=== PATIENT | male | born 1980 ===

== ENCOUNTER 2016-06-13 15:17 | Emergency (ER) | payer MEDICAID, OTHER ==
[2016-06-13 15:17] VITALS: BMI 22.3
[2016-06-13 15:28] VITALS: RESP 18; TEMP 98.2; O2SAT 100
[2016-06-13 17:09] VITALS: BP 116/78; PULSE 69
--- NOTE | 2016-06-13 17:52 | ED PDOC ---
HPI: CCC, URI, Sore Throat Time Seen by Provider: 06/13/16 16:01 Chief Complaint (Nursing): ENT Problem Chief Complaint (Provider): cough, st History Per: Patient Additional Complaint(s): pt c/o cough, st, congestion x 3 days. no fever, cp, sob, abd pain. Past Medical History Reviewed: Historical Data, Nursing Documentation, Vital Signs Vital Signs: Last Vital Signs Temp 98.2 F 06/13/16 15:27 Pulse 69 06/13/16 16:57 Resp 18 06/13/16 15:27 BP 116/78 06/13/16 16:57 Pulse Ox 100 06/13/16 15:27 - Medical History PMH: Bipolar Disorder, Depression, Migraine, Schizophrenia Denies: Diabetes, Hepatitis, HIV, HTN, Personality Disorder, Chronic Kidney Disease, Seizures, Sexually Transmitted Disease - Family History Family History: States: No Known Family Hx - Social History Current smoker - smoking cessation education provided: Yes Alcohol: None Drugs: Denies - Immunization History Hx Tetanus Toxoid Vaccination: Yes Hx Influenza Vaccination: Yes Hx Pneumococcal Vaccination: Yes - Home Medications Home Medications: Ambulatory Orders Medication Instructions Recorded Multivitamins [Hexavitamin] 1 tab PO DAILY #30 tab 06/07/16 Naltrexone [Revia] 50 mg PO DAILY #30 tab 06/07/16 traZODone [Desyrel] 50 mg PO HS PRN #30 tab 06/07/16 guaiFENesin/Dextromethorphan 1 tab PO BID #20 tab 06/13/16 [guaiFENesin/DM 600-30 mg] - Allergies Allergies/Adverse Reactions: Allergies Allergy/AdvReac Type Severity Reaction Status Date / Time No Known Allergies Allergy Verified 06/13/16 15:26 Review of Systems ROS Statement: Except As Marked, All Systems Reviewed And Found Negative ENT: Positive for: Nose Congestion, Throat Pain Respiratory: Positive for: Cough Physical Exam - Reviewed Nursing Documentation Reviewed: Yes Vital Signs Reviewed: Yes - Physical Exam Appears: Positive for: Well, Non-toxic, No Acute Distress Skin: Positive for: Normal Color, Warm, DRY ENT: Positive for: Normal ENT Inspection Neck: Positive for: Normal, Painless ROM Cardiovascular/Chest: Positive for: Regular Rate, Rhythm Respiratory: Positive for: CNT, Normal Breath Sounds Gastrointestinal/Abdominal: Positive for: Normal Exam, Bowel Sounds, Soft. Negative for: Tenderness Neurologic/Psych: Positive for: Alert, Oriented - ECG O2 Sat by Pulse Oximetry: 100 Disposition - Clinical Impression Clinical Impression: Upper respiratory infection - Patient ED Disposition Is Patient to be Admitted: No - Disposition Referrals: Jen Sheppard MD [Medical Doctor] - Disposition: Routine/Home Disposition Time: 17:52 Condition: GOOD Prescriptions: guaiFENesin/Dextromethorphan [guaiFENesin/DM 600-30 mg] 1 tab PO BID #20 tab Instructions: Upper Respiratory Infection (ED) Forms: [facility] ED School/Work Excuse
== END 2016-06-13 16:57 | disposition home or self-care (01) ==
LOC: H.ER 15:17
DX: J06.9 Acute upper respiratory infection, unspecified (principal); F20.9 Schizophrenia, unspecified; F31.9 Bipolar disorder, unspecified; F17.200 Nicotine dependence, unspecified, uncomplicated

== ENCOUNTER 2017-02-24 11:28 | Emergency (ER) | payer MEDICAID, OTHER ==
[2017-02-24 11:28] VITALS: BMI 22.3
[2017-02-24 11:50] VITALS: BP 122/60; PULSE 54; RESP 19; TEMP 97; O2SAT 99
--- NOTE | 2017-02-24 12:18 | ED PDOC ---
HPI: Dental Pain/Injury Time Seen by Provider: 02/24/17 11:39 Chief Complaint (Nursing): Dental Pain Chief Complaint (Provider): LEft lower dental pain History Per: Patient History/Exam Limitations: no limitations Onset/Duration Of Symptoms: Hrs Current Symptoms Are (Timing): Still Present Additional Complaint(s): PT states he has not taken anything for pain. Left lower dental pain. Past Medical History Reviewed: Historical Data, Nursing Documentation, Vital Signs Vital Signs: Last Vital Signs Temp 97.0 F L 02/24/17 11:46 Pulse 54 L 02/24/17 11:46 Resp 19 02/24/17 11:46 BP 122/60 02/24/17 11:46 Pulse Ox 99 02/24/17 11:46 - Medical History PMH: Bipolar Disorder, Depression, Migraine, Schizophrenia Denies: Diabetes, Hepatitis, HIV, HTN, Personality Disorder, Chronic Kidney Disease, Seizures, Sexually Transmitted Disease - Surgical History Surgical History: No Surg Hx - Family History Family History: States: No Known Family Hx - Living Arrangements Living Arrangements: With Family - Social History Current smoker - smoking cessation education provided: No Alcohol: Occasional - Immunization History Hx Tetanus Toxoid Vaccination: Yes Hx Influenza Vaccination: Yes Hx Pneumococcal Vaccination: Yes - Home Medications Home Medications: Ambulatory Orders Medication Instructions Recorded Multivitamins [Hexavitamin] 1 tab PO DAILY #30 tab 06/07/16 Naltrexone [Revia] 50 mg PO DAILY #30 tab 06/07/16 traZODone [Desyrel] 50 mg PO HS PRN #30 tab 06/07/16 guaiFENesin/Dextromethorphan 1 tab PO BID #20 tab 06/13/16 [guaiFENesin/DM 600-30 mg] Amoxicillin 875 mg PO BID #20 tab 02/24/17 Ibuprofen [Motrin Tab] 800 mg PO Q6H PRN #20 tab 02/24/17 - Allergies Allergies/Adverse Reactions: Allergies Allergy/AdvReac Type Severity Reaction Status Date / Time No Known Allergies Allergy Verified 06/13/16 15:26 Review of Systems ROS Statement: Except As Marked, All Systems Reviewed And Found Negative Constitutional: Negative for: Fever, Chills ENT: Positive for: Other (Dental pain) Physical Exam - Reviewed Nursing Documentation Reviewed: Yes Vital Signs Reviewed: Yes - Physical Exam Appears: Positive for: Well, Non-toxic, No Acute Distress Head Exam: Positive for: ATRAUMATIC, NORMAL INSPECTION, NORMOCEPHALIC Skin: Positive for: Normal Color, Warm, DRY Eye Exam: Positive for: Normal appearance ENT: Positive for: Normal ENT Inspection, Other (No erythema of the ginvia, no abscess formation ) Neck: Positive for: Normal, Painless ROM Respiratory: Negative for: Accessory Muscle Use, Respiratory Distress Back: Positive for: Normal Inspection Extremity: Positive for: Normal ROM Neurologic/Psych: Positive for: Alert, Oriented - ECG O2 Sat by Pulse Oximetry: 99 Disposition - Clinical Impression Clinical Impression: Toothache - Patient ED Disposition Is Patient to be Admitted: No - Disposition Disposition: Routine/Home Disposition Time: 12:18 Condition: GOOD Prescriptions: Amoxicillin 875 mg PO BID #20 tab Ibuprofen [Motrin Tab] 800 mg PO Q6H PRN #20 tab PRN Reason: Pain Instructions: Toothache (ED)
== END 2017-02-24 12:41 | disposition home or self-care (01) ==
LOC: H.ER 11:28
DX: K08.89 Other specified disorders of teeth and supporting structures (principal)

== ENCOUNTER 2018-01-15 02:02 | Emergency (ER) | payer MEDICAID ==
[2018-01-15 02:02] VITALS: BMI 22.3
[2018-01-15 02:10] VITALS: O2SAT 99
--- NOTE | 2018-01-15 02:44 | ED PDOC ---
HPI: Psych/Substance Abuse Time Seen by Provider: 01/15/18 02:34 Chief Complaint (Nursing): Alcohol Ingestion Chief Complaint (Provider): ETOH History Per: Patient, EMS Additional Complaint(s): 37 y/o male brought in by EMS for acute alcohol intoxication. Patient awake, alert,oriented x3. Admits to drinking tonight. Denies acute medical or psychiatric complaints. Past Medical History Reviewed: Historical Data, Nursing Documentation, Vital Signs Vital Signs: Last Vital Signs Temp 98.5 F 01/15/18 02:08 Pulse 73 01/15/18 02:08 Resp 17 01/15/18 02:08 BP 120/67 01/15/18 02:08 Pulse Ox 99 01/15/18 02:08 - Medical History PMH: Bipolar Disorder, Migraine, Schizophrenia Denies: Anxiety, Depression, Diabetes, Hepatitis, HIV, HTN, Personality Disorder, Chronic Kidney Disease, Seizures, Sexually Transmitted Disease - Family History Family History: States: No Known Family Hx Denies: Unknown Family Hx - Immunization History Hx Tetanus Toxoid Vaccination: Yes Hx Influenza Vaccination: Yes Hx Pneumococcal Vaccination: Yes - Home Medications Home Medications: Ambulatory Orders Medication Instructions Recorded Multivitamins [Hexavitamin] 1 tab PO DAILY #30 tab 06/07/16 Naltrexone [Revia] 50 mg PO DAILY #30 tab 06/07/16 traZODone [Desyrel] 50 mg PO HS PRN #30 tab 06/07/16 guaiFENesin/Dextromethorphan 1 tab PO BID #20 tab 06/13/16 [guaiFENesin/DM 600-30 mg] Amoxicillin 875 mg PO BID #20 tab 02/24/17 Ibuprofen [Motrin Tab] 800 mg PO Q6H PRN #20 tab 02/24/17 Dorzolamide 2%/Timolol 0.5% 5 ml OP 03/25/17 [Cosopt 2%-0.5% Opht] - Allergies Allergies/Adverse Reactions: Allergies Allergy/AdvReac Type Severity Reaction Status Date / Time No Known Allergies Allergy Verified 01/15/18 02:10 Review of Systems ROS Statement: Except As Marked, All Systems Reviewed And Found Negative Physical Exam - Reviewed Nursing Documentation Reviewed: Yes Vital Signs Reviewed: Yes - Physical Exam Appears: Positive for: Well, Non-toxic, No Acute Distress Head Exam: Positive for: ATRAUMATIC, NORMAL INSPECTION, NORMOCEPHALIC Skin: Positive for: Normal Color Eye Exam: Positive for: Normal appearance ENT: Positive for: Normal ENT Inspection Cardiovascular/Chest: Positive for: Regular Rate, Rhythm Respiratory: Positive for: Normal Breath Sounds Gastrointestinal/Abdominal: Positive for: Normal Exam Back: Positive for: Normal Inspection Extremity: Positive for: Normal ROM Neurologic/Psych: Positive for: Alert, Oriented (x3) - ECG O2 Sat by Pulse Oximetry: 99 - Progress ED Course And Treament: Patient given sandwich and juice Patient awake, alert, oriented x3. Ambulating steady gait Patient requires no further intervention in the ED and is stable for discharge at this time Disposition - Clinical Impression Clinical Impression: Alcohol abuse with intoxication - Patient ED Disposition Is Patient to be Admitted: No Counseled Patient/Family Regarding: Studies Performed, Diagnosis, Need For Followup - Disposition Disposition: Routine/Home Disposition Time: 05:00 Condition: GOOD Instructions: Abuse of Alcohol (ED)
[2018-01-15 06:46] VITALS: BP 132/66; PULSE 68; RESP 16; TEMP 97.4
== END 2018-01-15 06:30 | disposition home or self-care (01) ==
LOC: H.ER 02:02
DX: F10.129 Alcohol abuse with intoxication, unspecified (principal); F20.9 Schizophrenia, unspecified; F31.9 Bipolar disorder, unspecified

== ENCOUNTER 2018-06-12 23:00 | Emergency (ER) | payer MEDICAID ==
[2018-06-12 23:01] VITALS: BMI 22.3
[2018-06-12 23:06] VITALS: RESP 16
[2018-06-13 00:18] LABS: BASO # 0.1 K/uL (0.0-0.2); BASO % 0.9 % (0.0-2.0); EOS # 0.1 K/uL (0.0-0.7); EOS % 1.6 % (0.0-4.0); LYMPH # 2.3 K/uL (1.0-4.3); LYMPH % 34.4 % (20.0-40.0); MEAN CELL VOLUME 85.8 fl (80.0-94.0); MEAN CORPUSCULAR HEMOGLOBIN 28.6 pg (27.0-31.0); MEAN CORPUSCULAR HGB CONC 33.3 g/dL (33.0-37.0); MEAN PLATELET VOLUME 7.7 fl (7.2-11.7); MONO # 0.3 K/uL (0.0-0.8); MONO % 4.3 % (0.0-10.0); NEUT # 3.8 K/uL (1.8-7.0); NEUT % 58.8 % (50.0-75.0); NRBC % 0.1 % (0.0-0.0); RBC 5.18 Mil/uL (4.40-5.90); RED CELL DISTRIBUTION WIDTH 14.2 % (11.5-14.5); WHITE BLOOD COUNT 6.5 K/uL (4.8-10.8)
[2018-06-13 00:26] LABS: HEMOGLOBIN 14.8 g/dL (12.0-18.0)
[2018-06-13 00:31] LABS: ALB/GLOB RATIO 1.6 (1.0-2.1); ALBUMIN 4.5 g/dL (3.5-5.0); ALT/SGPT 46 U/L (21-72); AST/SGOT 30 U/L (17-59); BLOOD UREA NITROGEN 7 mg/dl (9-20); CALCIUM 9.1 mg/dL (8.4-10.2); GFR NON-AFRICAN AMERICAN > 60
--- NOTE | 2018-06-13 01:00 | ED PDOC ---
HPI: Psych/Substance Abuse Time Seen by Provider: 06/12/18 23:19 Chief Complaint (Nursing): Psychiatric Evaluation Chief Complaint (Provider): Psychiatric Evaluation History Per: Patient History/Exam Limitations: no limitations Onset/Duration Of Symptoms: Mins (prior to arrival) Current Symptoms Are (Timing): Still Present Suicide/Self Injury Attempted (Context): None Associated Symptoms: Suicidal Thoughts Additional Complaint(s): 38 year old male, known to the ED for multiple visits regarding alcohol abuse and schizophrenia, presents to the ED for evaluation. Just prior to arrival, he was at the police station in [place] and voiced suicidal thoughts. Patient was released from long term yesterday. Offers no medical complaints. PMD: none provided Past Medical History Reviewed: Historical Data, Nursing Documentation, Vital Signs Vital Signs: Last Vital Signs Temp 98.0 F 06/12/18 23:03 Pulse 74 06/12/18 23:03 Resp 16 06/12/18 23:03 BP 118/62 06/12/18 23:03 Pulse Ox 99 06/12/18 23:03 - Medical History PMH: Bipolar Disorder, Migraine, Schizophrenia Denies: Anxiety, Depression, Diabetes, Hepatitis, HIV, HTN, Personality Dis order, Chronic Kidney Disease, Seizures, Sexually Transmitted Disease - Family History Family History: Denies: Unknown Family Hx - Immunization History Hx Tetanus Toxoid Vaccination: Yes Hx Influenza Vaccination: Yes Hx Pneumococcal Vaccination: Yes - Home Medications Home Medications: Ambulatory Orders Medication Instructions Recorded Multivitamins [Hexavitamin] 1 tab PO DAILY #30 tab 06/07/16 Naltrexone [Revia] 50 mg PO DAILY #30 tab 06/07/16 traZODone [Desyrel] 50 mg PO HS PRN #30 tab 06/07/16 guaiFENesin/Dextromethorphan 1 tab PO BID #20 tab 06/13/16 [guaiFENesin/DM 600-30 mg] Amoxicillin 875 mg PO BID #20 tab 02/24/17 Ibuprofen [Motrin Tab] 800 mg PO Q6H PRN #20 tab 02/24/17 Dorzolamide 2%/Timolol 0.5% 5 ml OP 03/25/17 [Cosopt 2%-0.5% Opht] - Allergies Allergies/Adverse Reactions: Allergies Allergy/AdvReac Type Severity Reaction Status Date / Time No Known Allergies Allergy Verified 06/12/18 23:03 Review of Systems ROS Statement: Except As Marked, All Systems Reviewed And Found Negative Psych: Positive for: Suicidal ideation Physical Exam - Reviewed Nursing Documentation Reviewed: Yes Vital Signs Reviewed: Yes - Physical Exam Appears: Positive for: No Acute Distress Head Exam: Positive for: ATRAUMATIC, NORMAL INSPECTION, NORMOCEPHALIC Skin: Positive for: Normal Color, Warm, Dry. Negative for: Rash Eye Exam: Positive for: EOMI, Normal appearance, PERRL Neck: Positive for: Normal, Painless ROM, Supple Cardiovascular/Chest: Positive for: Regular Rate, Rhythm. Negative for: Murmur Respiratory: Positive for: Normal Breath Sounds. Negative for: Respiratory Distress Extremity: Positive for: Normal ROM (x 4). Negative for: Deformity Neurological/Psych: Positive for: Awake, Alert, Normal Tone, Oriented (x 3). Negative for: Motor/Sensory Deficits - Laboratory Results Result Diagrams: 06/12/18 23:53 06/12/18 23:53 Lab Results: Total Bilirubin 0.5 mg/dl (0.2-1.3) 06/12/18 23:53 AST 30 U/L (17-59) 06/12/18 23:53 ALT 46 U/L (21-72) 06/12/18 23:53 Alkaline Phosphatase 68 U/L (38-126) 06/12/18 23:53 Total Protein 7.3 G/DL (6.3-8.2) 06/12/18 23:53 Albumin 4.5 g/dL (3.5-5.0) 06/12/18 23:53 Globulin 2.9 gm/dL (2.2-3.9) 06/12/18 23:53 Albumin/Globulin Ratio 1.6 (1.0-2.1) 06/12/18 23:53 - ECG O2 Sat by Pulse Oximetry: 99 (RA) Pulse Ox Interpretation: Normal Medical Decision Making Medical Decision Makin:20 Impression: alcohol intoxication and suicidal ideation Initial Plan: --Alcohol serum --CBC --CMP --UDS --Urine dip --Crisis evaluation --1:1 observation 00:30 On re-evaluation, patient is resting comfortably, asleep in ED bed. 01:36 Patient was evaluated by crisis and stable for discharge. Diagnosis is alcohol intoxication. Scribe Attestation: Documented by Piper Hyman, acting as a scribe Patrick Jaquez MD Provider Scribe Attestation: All medical record entries made by the Scribe were at my direction and personally dictated by me. I have reviewed the chart and agree that the record accurately reflects my personal performance of the history, physical exam, medical decision making, and the department course for this patient. I have also personally directed, reviewed, and agree with the discharge instructions and disposition Disposition - Clinical Impression Clinical Impression: Alcohol intoxication - Patient ED Disposition Is Patient to be Admitted: No - Disposition Disposition: Routine/Home Disposition Time: 01:36 Condition: STABLE Instructions: Effects of Alcohol on Your Health Forms: [employer] [facility] (Bengali) Print Language: [place]
[2018-06-13 01:45] LABS: SQUAMOUS EPITHIAL < 1 /hpf (0-5); URINE BACTERIA RARE (<OCC); URINE BILIRUBIN NEGATIVE (NEGATIVE); URINE BLOOD NEGATIVE (NEGATIVE); URINE CLARITY CLEAR (Clear); URINE COLOR STRAW (YELLOW); URINE GLUCOSE (UA) NEG (NEGATIVE); URINE LEUKOCYTE ESTERASE NEG Leu/uL (Negative); URINE PROTEIN NEGATIVE (NEGATIVE); URINE UROBILINOGEN 0.2-1.0 mg/dL (0.2-1.0)
[2018-06-13 02:06] LABS: BARBITURATES, UR NEGATIVE (NEGATIVE); BENZODIAZEPINES, UR POSITIVE (NEGATIVE); OPIATES, UR NEGATIVE (NEGATIVE); PHENCYCLIDINE, UR NEGATIVE (NEGATIVE)
[2018-06-13 05:38] VITALS: BP 126/64; PULSE 80; TEMP 98.2; O2SAT 100
== END 2018-06-13 05:10 | disposition home or self-care (01) ==
LOC: EDBD 23:00 → H.ER 23:00
DX: F10.129 Alcohol abuse with intoxication, unspecified (principal); R45.851 Suicidal ideations; F20.9 Schizophrenia, unspecified; F31.9 Bipolar disorder, unspecified

== ENCOUNTER 2018-06-13 22:49 | Emergency (ER) | payer MEDICAID ==
[2018-06-13 22:49] VITALS: BMI 22.3
--- NOTE | 2018-06-14 01:18 | ED PDOC ---
HPI: Psych/Substance Abuse Time Seen by Provider: 06/13/18 23:22 Chief Complaint (Nursing): Anxiety Chief Complaint (Provider): Anxiety History Per: Patient History/Exam Limitations: no limitations Additional Complaint(s): 38 years old homeless male with a history of schizophrenia, bipolar disorder and alcohol abuse presents to ER for psychiatric evaluation. Patient was last seen here in ED last night for alcohol intoxication at which time complained of suicidal ideation. Patient was seen by crisis and cleared for discharge. He presented to [facility] earlier today requesting alcohol detox and was told he was not a candidate. Patient presents for further evaluation and states he feels very anxious. In triage, patient states he was going to cut his throat but upon provider's discussion with patient, he denies suicidal ideation. Patient states he is concerned he is going to if he continues to drink the way he does. He admits to drinking wine and 3 shots of fireball today which is about usual for him. Patient offers no physical complaints and denies auditory hallucinations, homicidal ideation and taking any anxiety medications. PMD: None provided Past Medical History Reviewed: Historical Data, Nursing Documentation, Vital Signs Vital Signs: Last Vital Signs Temp 98.1 F 06/13/18 22:59 Pulse 80 06/13/18 22:59 Resp 18 06/13/18 22:59 BP 121/77 06/13/18 22:59 Pulse Ox 100 06/13/18 22:59 - Medical History PMH: Anxiety, Bipolar Disorder, Depression, Migraine, Schizophrenia Denies: Diabetes, Hepatitis, HIV, HTN, Personality Disorder, Chronic Kidney Disease, Seizures, Sexually Transmitted Disease - Surgical History Surgical History: No Surg Hx - Family History Family History: States: Unknown Family Hx - Social History Current smoker - smoking cessation education provided: Yes Alcohol: > 2 Drinks/Day Drugs: Cocaine - Immunization History Hx Tetanus Toxoid Vaccination: Yes Hx Influenza Vaccination: No Hx Pneumococcal Vaccination: Yes - Home Medications Home Medications: Ambulatory Orders Medication Instructions Recorded traZODone [Desyrel] 50 mg PO HS PRN #30 tab 06/07/16 Dorzolamide 2%/Timolol 0.5% 5 ml OP QID 03/25/17 [Cosopt 2%-0.5% Opht] - Allergies Allergies/Adverse Reactions: Allergies Allergy/AdvReac Type Severity Reaction Status Date / Time No Known Allergies Allergy Verified 06/13/18 22:56 Review of Systems ROS Statement: Except As Marked, All Systems Reviewed And Found Negative Psych: Positive for: Anxiety, Other (auditory hallucinations). Negative for: Suicidal ideation (or homicidal) Physical Exam - Reviewed Nursing Documentation Reviewed: Yes Vital Signs Reviewed: Yes - Physical Exam Appears: Positive for: Well, No Acute Distress Head Exam: Positive for: ATRAUMATIC, NORMOCEPHALIC Cardiovascular/Chest: Positive for: Regular Rate, Rhythm. Negative for: Murmur Respiratory: Positive for: Normal Breath Sounds. Negative for: Respiratory Distress Neurological/Psych: Positive for: Awake, Alert, Oriented (x3), Mood/Affect (affect appropriate), Other (Coherent slurred. No flight of ideas.) - ECG O2 Sat by Pulse Oximetry: 100 (RA) Pulse Ox Interpretation: Normal Medical Decision Making Medical Decision Making: Time: 2323 Initial plan: --Crisis evaluation --03-11 Observation 0115 Patient seen by stamping die try out worker and cleared for discharge as per Dr. Doll, psychiatrist engineering inspection assistant. ScribeAttestation: Documented byGini Hines, acting as a scribe for EVELYN Newton. Provider ScribeAttestation: All medical record entries made by the Scribe were at my direction and personally dictated by me. I have reviewed the chart and agree that the record accurately reflects my personal performance of the history, physical exam, medical decision making, and the department course for this patient. I have also personally directed, reviewed, and agree with the discharge instructions and disposition. Disposition - Clinical Impression Clinical Impression: Alcohol dependence - Patient ED Disposition Is Patient to be Admitted: No Discussed With : Lisa Doll - Disposition Referrals: Emory Sheppard MD [Family Provider] - Disposition: Routine/Home Disposition Time: 01:37 Condition: STABLE Additional Instructions: Please follow up with alcoholics anonymous and utilize the resources provided to you by our mental health counselors. Instructions: Alcohol Abuse and Alcoholism (DC) Forms: [facility] (Sri Lankan) Print Language: GREENLAND[place]
[2018-06-14 04:46] VITALS: BP 127/84; PULSE 94; RESP 16; TEMP 98.6; O2SAT 98
== END 2018-06-14 03:30 | disposition home or self-care (01) ==
LOC: H.ER 22:49
DX: F10.229 Alcohol dependence with intoxication, unspecified (principal)